=== PATIENT | male | born 1995 | race African-American/Black ===

== ENCOUNTER 2023-05-03 21:42 | Emergency (ER) | payer OTHER ==
[~2023-05-03] VITALS: Ht 160 cm; Wt 54.5 kg
[2023-05-03] MEDS ORDERED: LISI-893 PO (22:02)
[2023-05-03] MEDS ORDERED: DIGO125T84 PO (22:02)
[2023-05-03] MEDS ORDERED: ASPI-1450 PO (22:02)
[2023-05-03] MEDS ORDERED: TADA20TA31 PO (22:02)
[2023-05-04] MEDS ORDERED: SULF1TAB41 PO (00:09)
[2023-05-04] MEDS ORDERED: CEPH-558 PO (00:09)
[2023-05-04] MEDS ORDERED: CefTRIAXone SODIUM 1 GM/VIAL IM ONE (00:15)
[2023-05-04] MEDS ORDERED: LIDOCAINE/PF 1% 2 ML VIAL IM ONE (00:15)
[2023-05-04] MEDS ORDERED: SULFAMETHOX/TRIMETH DS 800-160 MG/TABLET PO ONE (00:15)
[2023-05-04 01:00] VITALS: BP 119/65; PULSE 72; RESP 15; TEMP 98.1
== END 2023-05-04 01:18 | disposition home or self-care (01) ==
LOC: EMS 21:56
DX: L03.111 Cellulitis of right axilla (principal); Z98.890 Other specified postprocedural states
CPT/HCPCS: 99283; 96372; J0696; J3490